=== PATIENT | male | born 1945 | race Caucasian/White ===

== ENCOUNTER 2024-11-05 16:36 | Emergency (ER) | payer OTHER, MEDICAID ==
[~2024-11-05] VITALS: Ht 175.3 cm; Wt 71.7 kg
[2024-11-05 16:40] VITALS: TEMP 98
[2024-11-05] MEDS ORDERED: oxyCODONE/APAP (5/325 MG) 1 UDTAB TABLET ONE (17:25)
[2024-11-05] MEDS: oxyCODONE/APAP (5/325 MG) 1 UDTAB TABLET PO ONE (17:30)
[2024-11-05 18:40] VITALS: BP 144/78; O2SAT 98
== END 2024-11-05 18:42 | disposition home or self-care (01) ==
LOC: ER 16:51
DX: M25.511 Pain in right shoulder (principal); W19.XXXA Unspecified fall, initial encounter; Y93.89 Activity, other specified; Y92.89 Other specified places as the place of occurrence of the external cause; Y99.8 Other external cause status
CPT/HCPCS: 71045-TC; 73000-TC; 73030-TC